=== PATIENT | male | born 1950 | race Caucasian/White ===

== ENCOUNTER 2019-10-31 18:29 | Emergency (ER) | payer OTHER ==
--- NOTE | 2019-10-31 18:45 | PDOC ---
Rapid Medical Evaluation Time Seen by Provider: 10/31/19 18:45 Medical Evaluation: 10/31/19 18:45 HPI: COVID-19 CDC guideline data points: The patient is a 69-year-old former smoker with COPD, NIDDM and HTN who presents with suspected COVID-19 with associated symptoms of fever, dry cough, SOB, chest tightness. Took azithromycin without improvement. Nebulizers not helping with symptoms. also ill. ROS: NEGATIVE: lightheadedness, dizziness, nausea, vomiting and diarrhea. Other 12 point ROS reviewed and negative. Exam: General: NAD, Well-Appearing, Awake, Alert Oriented x3. Vital signs stable. ENT: No rhinorrhea or nasal congestion. Neck: FROM, no midline tenderness. Lungs: Clear to auscultation bilaterally without wheezes, rhonchi or rales. Normal excursion. Patient is able to speak in full sentences. Heart: HR: Regular rhythm, S1-S2 present, no murmurs rubs or gallops. Abdomen: Non-distended. MSK/Extremities: No decrease ROM, No obvious deformities. No obvious cyanosis noted. Neuro: Normal Gait, Cranial Nerves II through XII Grossly Intact. Skin: No obvious rashes, bruising. Color Normal Appearing. Assessment/Plan: [Cough/fever] Denies recent travel and known COVID exposure. Patient does not meet testing criteria at this time. ASSESSMENT: Denies recent travel and known Covid exposure. Normal exam, but concerning comorbidities and course of illness. Treatment: Neb CXR Tent for further eval Discharge Disposition - Diagnosis Fever - Referrals Referrals: Edgardo Saenz MD [Primary Care Provider] - - Patient Instructions Printed Discharge Instructions: [facility]Coronavirus Instructions, [facility] COVID-19 Isolation Protocol Additional Instructions: You were seen for your cough and possible Coronavirus (COVID-19) Please call the [facility] testing center to make an appointment at or you can call [facility] at from 8:30 AM to 6 PM; or you can visit the [facility] website: [email or web address] for more information about testing at the [facility]. Take Tylenol 650 mg every 6 hours as needed for fever or pain. You may take Robitussin or other okqu-tzi-xdquici cough syrup. Follow the dosing instructions on the bottle. Warm tea, honey, and salt water gargles may help your symptoms. Please take precautions and self quarantine for 2 weeks and follow-up with your primary care doctor and the Department of Health. Return to the nearest emergency department for shortness of breath, difficulty breathing, chest pain, or if you have any changes in your symptoms. - Post Discharge Activity
[2019-10-31 18:51] VITALS: BP 140/94; PULSE 80; TEMP 99.1
[2019-10-31] MEDS ORDERED: ALBUTEROL SO4 2.5/IPRATROPIUM 0.5 INH SOL 3 ML VIAL.NEB. NEB ONE (18:53)
--- NOTE | 2019-10-31 19:34 | PDOC ---
*Physical Exam - Vital Signs Last Vital Signs Temp Pulse Resp BP Pulse Ox 99.1 F 80 16 140/94 96 10/31/19 18:49 10/31/19 18:49 10/31/19 18:49 10/31/19 18:49 10/31/19 18:49 Medical Decision Making - Medical Decision Making 10/31/19 19:33 CXR- No focal infiltrates or consolidations. Prominent rosa isela present. Discharge home to [facility]. Discharge - Discharge Information Problems reviewed: Yes Clinical Impression/Diagnosis: Fever Qualifiers: Fever type: unspecified Qualified Code(s): R50.9 - Fever, unspecified Condition: Stable Disposition: HOME - Admission No - Follow up/Referral Referrals: Edgardo Saenz MD [Primary Care Provider] - - Patient Discharge Instructions Patient Printed Discharge Instructions: [facility]Coronavirus Instructions, [facility] COVID-19 Isolation Protocol Additional Instructions: You were seen for your cough and possible Coronavirus (COVID-19) Please call the [facility] testing center to make an appointment at or you can call [facility] at from 8:30 AM to 6 PM; or you can visit the [facility] website: [email or web address] for more information about testing at the [facility]. Take Tylenol 650 mg every 6 hours as needed for fever or pain. You may take Robitussin or other jhmk-cld-znazngi cough syrup. Follow the dosing instructions on the bottle. Warm tea, honey, and salt water gargles may help your symptoms. Please take precautions and self quarantine for 2 weeks and follow-up with your primary care doctor and the Department of Health. Return to the nearest emergency department for shortness of breath, difficulty breathing, chest pain, or if you have any changes in your symptoms. - Post Discharge Activity
== END 2019-10-31 19:39 | disposition home or self-care (01) ==
LOC: JER 18:29
DX: R50.9 Fever, unspecified (principal)
CPT/HCPCS: 71045-TC-FY; 99283-25